=== PATIENT | female | born 1990 | race Caucasian/White ===

== ENCOUNTER 2018-04-18 22:03 | Emergency (ER) | payer SELFPAY ==
[2018-04-18 22:10] VITALS: BP 123/68; PULSE 94; TEMP 98.5; BMI 25.9
--- NOTE | 2018-04-18 23:32 | PDOC ---
History of Present Illness <ChrisLeia Keyla - Last Filed: 04/18/18 23:32> - General History Source: Patient Exam Limitations: No Limitations - History of Present Illness Initial Comments: 04/18/18 23:36 The patient is a 28 year old female, with no significant past medical history, who presents to the emergency department with, nasal congestion. As per patient , she was in bed tonight when she began to experience nasal congestion prompting her to become nervous thus, reporting to the ED. She denies recent fevers, chills, headache or dizziness. She denies recent nausea, vomit, diarrhea or constipation. She denies recent dysuria, frequency, urgency or hematuria. She denies recent chest pain or shortness of breath. Allergies: NKDA Past surgical history: None reported. Social history: Nonsmoker. Denies EtOH use and recreational drug use. <Joseph Payne - Last Filed: 04/18/18 23:37> - General Chief Complaint: Cold Symptoms Stated Complaint: DIZZINESS,STUFFY NOSE Time Seen by Provider: 04/18/18 23:19 Past History - Past Medical History Asthma: No Cancer: No Cardiac Disorders: No COPD: No Diabetes: No HTN: No Seizures: No Thyroid Disease: No - Suicide/Smoking/Psychosocial Hx Smoking History: Never smoked Have you smoked in the past 12 months: No Information on smoking cessation initiated: No Hx Alcohol Use: No Drug/Substance Use Hx: No Hx Substance Use Treatment: No <ChrisLeiabrandi Ramires - Last Filed: 04/18/18 23:32> <Joseph Payne - Last Filed: 04/18/18 23:37> - Past Medical History Allergies/Adverse Reactions: Allergies Allergy/AdvReac Type Severity Reaction Status Date / Time No Known Allergies Allergy Verified 04/18/18 22:09 Home Medications: Ambulatory Orders Vitamins 1 tab PO DAILY 04/15/11 Acetaminophen [Tylenol .Regular Strength -] 650 mg PO Q3H PRN #2 tablet Benzocaine Ointment [Americaine Ointment -] 1 applic TP PRN PRN #1 tube Benzocaine Oral Gel [Anbesol -] 1 spray TP PRN PRN #0 tube 04/17/11 Ibuprofen [Motrin -] 600 mg PO Q4H PRN #1 tablet 04/17/11 Marilyn Stephenson 50% (Tucks) [Tucks Pads -] 1 pad TP PRN PRN #1 pad 04/17/11 Review of Systems - Review of Systems Able to Perform ROS?: Yes Comments:: 04/18/18 23:36 CONSTITUTIONAL: Absent: fever, no chills, no fatigue EYES: Absent: visual changes ENT: Present: Nasal congestion. Absent: ear pain, no sore throat CARDIOVASCULAR: Absent: chest pain, no palpitations RESPIRATORY: Absent: cough, no SOB GI: Absent: abdominal pain, no nausea, no vomiting, no constipation, no diarrhea GENITOURINARY: Absent: dysuria, no frequency, no hematuria MUSKULOSKELETAL: Absent: back pain, no arthralgia, no myalgia SKIN: Absent: rash NEURO: Absent: headache All Other Systems: Reviewed and Negative <Joseph Payne - Last Filed: 04/18/18 23:37> *Physical Exam - Vital Signs Last Vital Signs Temp Pulse Resp BP Pulse Ox 98.5 F 94 H 16 123/68 100 04/18/18 22:07 04/18/18 22:07 04/18/18 22:07 04/18/18 22:07 04/18/18 22:07 <Leia Perez - Last Filed: 04/18/18 23:32> - Vital Signs Last Vital Signs Temp Pulse Resp BP Pulse Ox 98.5 F 94 H 16 123/68 100 04/18/18 22:07 04/18/18 22:07 04/18/18 22:07 04/18/18 22:07 04/18/18 22:07 - Physical Exam Comments: 04/18/18 23:36 GENERAL: Well developed, well nourished. Awake and alert. No acute distress. HEENT: +Nasal congestion. Normocephalic, atraumatic. PERRLA, EOMI. No conjunctival pallor. Sclera are non-icteric. Moist mucous membranes. Oropharynx is clear. Uvula midline. NECK: Supple. Full ROM. No JVD. Carotid pulses 2+ and symmetric, without bruits. No thyromegaly. No lymphadenopathy. CARDIOVASCULAR: Regular rate and rhythm. No murmurs, rubs, or gallops. Distal pulses are 2+ and symmetric. PULMONARY: No evidence of respiratory distress. Lungs clear to auscultation bilaterally. No wheezing, rales or rhonchi. ABDOMINAL: Soft. Non-tender. Non-distended. No rebound or guarding. No organomegaly. Normoactive bowel sounds. MUSCULOSKELETAL Normal range of motion at all joints. No bony deformities or tenderness. No CVA tenderness. EXTREMITIES: No cyanosis. No clubbing. No edema. No calf tenderness. SKIN: Warm and dry. Normal capillary refill. No rashes. No jaundice. NEUROLOGICAL: Alert, awake, appropriate. Cranial nerves 2-12 intact. No deficits to light touch and temperature in face, upper extremities and lower extremities. No motor deficits in the in face, upper extremities and lower extremities. Normoreflexic in the upper and lower extremities. Normal speech. Toes are down- going bilaterally. Gait is normal without ataxia. PSYCHIATRIC: Cooperative. Good eye contact. Appropriate mood and affect. <Joseph Payne - Last Filed: 04/18/18 23:37> Moderate Sedation - Procedure Monitoring Vital Signs: Procedure Monitoring Vital Signs Temperature 98.5 F 04/18/18 22:07 Pulse Rate 94 H 04/18/18 22:07 Respiratory Rate 16 04/18/18 22:07 Blood Pressure 123/68 04/18/18 22:07 O2 Sat by Pulse Oximetry (%) 100 04/18/18 22:07 <Leia Perez - Last Filed: 04/18/18 23:32> - Procedure Monitoring Vital Signs: Procedure Monitoring Vital Signs Temperature 98.5 F 04/18/18 22:07 Pulse Rate 94 H 04/18/18 22:07 Respiratory Rate 16 04/18/18 22:07 Blood Pressure 123/68 04/18/18 22:07 O2 Sat by Pulse Oximetry (%) 100 04/18/18 22:07 <Joseph Payne - Last Filed: 04/18/18 23:37> *DC/Admit/Observation/Transfer <Leia Perez - Last Filed: 04/18/18 23:32> - Attestations Scribe Attestion: 04/18/18 23:37 Documentation prepared by Joseph Payne, acting as medical assisting program director for Leia Perez MD. <Joseph Payne - Last Filed: 04/18/18 23:37> Diagnosis at time of Disposition: Nasal congestion - Discharge Dispostion Disposition: HOME Condition at time of disposition: Stable - Patient Instructions Printed Discharge Instructions: DI for Nasal Congestion Additional Instructions: please read your discharge instructions Saline nose drops may help and also you can obtain nasal decongestant tablets OTC at [facility] A shower may help keep your mucus membranes moist
== END 2018-04-18 23:55 | disposition home or self-care (01) ==
LOC: JER 22:03 → JERFT 22:03 → JER 23:55
DX: R09.81 Nasal congestion (principal)
CPT/HCPCS: 99282-25